=== PATIENT | female | born 1975 | race African-American/Black ===

== ENCOUNTER 2024-06-08 19:46 | Emergency (ER) | payer BC ==
[~2024-06-08] VITALS: Ht 172.7 cm; Wt 95.3 kg
[2024-06-08 22:01] VITALS: BP 122/80; TEMP 98.5; O2SAT 99
== END 2024-06-08 22:07 | disposition home or self-care (01) ==
LOC: ER 19:50
DX: S60.221A Contusion of right hand, initial encounter (principal); Z88.8 Allergy status to other drugs, medicaments and biological substances; Z91.041 Radiographic dye allergy status; W22.8XXA Striking against or struck by other objects, initial encounter; Y93.K1 Activity, walking an animal; Y92.89 Other specified places as the place of occurrence of the external cause; Y99.8 Other external cause status
CPT/HCPCS: 73110; 73130-TC